=== PATIENT | female | born 1990 | race Hispanic/Latino ===

== ENCOUNTER 2022-08-05 18:55 | Inpatient (IN) | payer OTHER, SELFPAY ==
--- NOTE | 2022-08-05 22:02 | P.PNAN_ITS ---
Anes - Initial Pre Proc Eval Procedure: Operation Date: 08/05/22 22:30 Proposed Procedures p Section - Donato Cook MD Date/Time: 08/05/22 22:02 Surgeon: Eder Garnett MD Pre Op Diagnosis: Repeat C/S Pre Op Diagnosis: Vaginal Discharge/Cramping Patient Data Age: 32 Gender: F Height: 1.42cm Weight: 73kg Allergies Allergy/AdvReac Type Severity Reaction Status Date / Time No Known Allergies Allergy Verified 08/05/22 22:03 Patient hx anesthesia problems: none Family hx anesthesia problems: none Prior surgeries: Results Review: All pre-operative results and documents have been reviewed as part of the pre- operative evaluation. [facility] Social History Social History Smoking status: Never smoker Lack of Transportation: No Lack of Food: Never True Current Housing: I Have Housing Concerned About Future Housing: No Difficulty Paying Gas/Electric Bills: No Difficulty Paying for Meds: No Currently Unemployed: No Education: Grade School Difficulty w/ Childcare or Family Care: No Anes - Eval Final PreProcedure Day of Procedure 08/05/22 22:02 Heart: regular rate and rhythm Lungs: clear to auscultation Airway: Mallampati scale class II Neurological: alert and oriented Last oral intake: 6 hours ASA classification: II Emergent: no Anesthetic plan: proceed Anesthesia type and monitoring: regional spinal and standard monitoring Results Review: All pre-operative results and documents have been reviewed as part of the pre- operative evaluation. Informed Consent: The patient's anesthetic plan and its attendant risks and benefits were discussed with the patient/family/POA. Questions were solicited and answers provided to the satisfaction of the patient/family/POA.
--- NOTE | 2022-08-05 22:08 | LDADM ---
This patient, Adrienne Rondon, was admitted to Labor/Delivery/Recovery 120 on 08/05/22 at 21:25. Plans for labor, pain management and were discussed with patient. Patient/family oriented to hospital policies and general routines including ID bracelet, bed and alarms, visiting hours, pain management, procedures, bathroom and other care routines, personal items, smoking policy, room service/diet and guest tray routines, infant security routines, and visiting hours. Patient/Family are encouraged to report perceived risks to care and to ask questions if they do not understand what they are told or what they should do. See OBIX for further documentation.
[2022-08-05 22:13] LABS: Basophils Percent Auto 0.3 % (0.2-1.2); Eosinophils Absolute Auto 0.1 K/mm3 (0-0.3); Eosinophils Percent Auto 0.9 % (0-4.4); Hemoglobin 12.4 g/dL (12.0-15.0); Immature Granulocyte Absolute 0.03 K/mm3 (0.00-0.031); Immature Granulocyte Percent A 0.4 % (0-0.5); Lymphocytes Absolute Auto 2.44 K/mm3 (0.9-3.2); Lymphocytes Percent Auto 34.7 % (18.3-44.2); Mean Corpuscular HGB Conc 33.5 g/dl (32-36); Mean Corpuscular Hemoglobin 28.2 pg (26-34); Mean Corpuscular Volume 84.3 fl (80-100); Mean Platelet Volume 10.4 fl (7.4-10.4); Monocytes Absolute Auto 0.3 K/mm3 (0.1-0.6); Monocytes Percent Auto 4.4 % (2.6-8.5); Neutrophils Absolute Auto 4.2 K/mm3 (1.3-6.7); Neutrophils Percent Auto 59.3 % (45.5-73.1); Platelet Count Result 252 k/mm3 (150-375); Red Blood Count 4.39 M/mm3 (4.2-5.4); Red Cell Distribution Width 13.6 % (11.5-14.5)
[2022-08-05] MEDS: LACTATED RINGERS 1,000 ML 999 ML IV CONT (22:20)
--- NOTE | 2022-08-05 23:04 | P.PNAN_ITS ---
Anes - Eval Final PreProcedure Day of Procedure 08/05/22 23:04 Patient weight: overweight Heart: regular rate and rhythm Lungs: clear to auscultation Airway: Mallampati scale class II Neurological: alert and oriented Last oral intake: 6 hours ASA classification: II Emergent: no Anesthetic plan: proceed Anesthesia type and monitoring: regional spinal and standard monitoring Results Review: All pre-operative results and documents have been reviewed as part of the pre- operative evaluation. Informed Consent: The patient's anesthetic plan and its attendant risks and benefits were discussed with the patient/family/POA. Questions were solicited and answers provided to the satisfaction of the patient/family/POA.
[2022-08-05] MEDS: LACTATED RINGERS 1,000 ML 125 ML IV CONT (23:29)
--- NOTE | 2022-08-05 23:36 | PM.IMHP ---
H&P: HPI History of Present Illness Date/Time: 08/05/22 23:36 Chief Complaint: Labor Narrative: 32 y/o at 38 weeks here with contractions. Prior . GBS unknown. Cervix has changed from 1 to 4 cm. Interview conducted with translation service from Syriac to Ghanaian. She has a left ovarian cyst she'd like to have evaluated and possibly excised. Review of Systems Review of Systems: All systems reviewed & are unremarkable except as noted in HPI and below PMFSH Surgical History Surgical History (Updated 08/05/22 @ 23:39 by Donato Cook MD) History of 2 sections Social History Social History Smoking status: Never smoker Lack of Transportation: No Lack of Food: Never True Current Housing: I Have Housing Concerned About Future Housing: No Difficulty Paying Gas/Electric Bills: No Difficulty Paying for Meds: No Currently Unemployed: No Education: Grade School Difficulty w/ Childcare or Family Care: No Meds Home Medications and Allergies Allergies Allergy/AdvReac Type Severity Reaction Status Date / Time No Known Allergies Allergy Verified 08/05/22 22:03 Exam Const: Orientation/consciousness: patient oriented x3 Other: Well-developed, well-nourished female in no acute distress. Neck: Thyroid: thyroid normal Lymphatic: no lymphadenopathy noted (in neck, axilla or inguinal nodes) Resp: Effort & Inspection: normal respiratory effort Auscultation: clear to auscultation bilaterally Cardio: Rate: regular rate Rhythm: regular rhythm Heart sounds: S1 normal heart sound present and S2 normal heart sound present GI: Other: ABD: Soft, nontender, nondistended. No guarding or rebound tenderness. No hepatosplenomegaly. : General: Yes no CVA tenderness Other: External genitalia: normal female hair distribution, without lesion. Urethral meatus: no lesion, non prolapsed. Bladder: no mass, nontender Vagina: well-estrogenized, without lesion or discharge. No cystocele or rectocele. Cervix: no lesion or discharge. Uterus: small, anteverted, freely mobile, nontender Adnexa: no mass or tenderness. Anus/perineum: no lesions, nontender Back/Spine/Pelvis: Back: no CVA tenderness Skin: General skin exam: normal color and no rashes or lesions noted Neuro: General: patient oriented x3 Extrem: Other: Extremities: nontender with no edema Psych: Mental Status: mental status grossly normal Affect: normal affect H&P: Results Labs Labs: Short CBC 08/05/22 Range/Units 22:05 WBC 7.0 (4.5-10.0) K/mm3 Hgb 12.4 (12.0-15.0) g/dL Hct 37.0 (37.0-47.0) % Plt Count 252 (150-375) k/mm3 Assessment and Plan Assessment and plan (1) Term : Code(s): Z34.90 - Encounter for supervision of normal , unspecified, unspecified trimester Status: Acute Assessment and Plan: A: 32 y/o at 38 weeks here with labor, prior delivery, desiring repeat. Also with a left ovarian cyst, desiring evaluation and possible left ovarian cystectomy. P: She understands risks of surgery to include risks of anesthesia, risks of pain, infection, bleeding, blood products, thromboembolic phenomena and damage to adjacent structures such as bowel, bladder, ureters, blood vessels and nerves. She understands all these risks and elects to proceed with repeat , possible left ovarian cystectomy. (2) Active labor at term: Status: Acute (3) History of delivery: Code(s): Z98.891 - History of uterine scar from previous surgery Status: Acute
--- NOTE | 2022-08-05 23:42 | WPDHPUPDATE1 ---
History and Physical Update Update Date/Time: 08/05/22 23:42 History and Physical has been reviewed, including an updated exam of the patient. There are NO changes in the patient's condition. Risks, benefits, and alternatives have been discussed and questions answered. Patient agrees to proceed with procedure.
[2022-08-06] VITALS (177 sets, daily range): BP systolic 53–110; BP diastolic 26–83; PULSE 49–140; RESP 16–20; TEMP 36.1–37.7; O2SAT 84–100
[2022-08-06] MEDS: KETOROLAC 30 MG/ML VIAL (*BKC) IV PUSH ×2 (00:51→12:09)
--- NOTE | 2022-08-06 01:09 | P.PCNOB_ITS ---
OB - Delivery Note Procedure Delivery date: 08/06/22 Procedure: Procedures Operation Date: 08/05/22 22:30 <No data on this case meets the specified criteria> Repeat low transverse delivery Excision of left adnexal cyst Delivery monitor: External FHT and External Uterine Route of delivery: Specimen: Yes (cord blood, left adnexal cyst) Quantitative Blood Loss (ml): 1,285 Anesthesia type: Spinal Disposition: PACU Complications: None Narrative: Findings: Normal-appearing uterus, right ovary and right tube. A large cystic mass [id number] in the left adnexa appeared to be arising from the left Fallopian tube. The left ovary was normal-appearing. Techniques: The patient was taken to the operating room where she was prepared and draped in the usual sterile fashion in dorsal supine position with a leftward tilt. She received cefazolin preoperatively. Spinal anesthesia was found to be adequate. A Pfannenstiel skin incision was made along the previous scar line and was carried through to the underlying layer of the fascia. The fascia was incised in the midline and the incision was extended laterally. The fascia was dissected free of the underlying rectus muscles. The rectus muscles were in the midline. The peritoneum was identified, tented up and entered sharply. The peritoneal incision was extended superiorly and inferiorly with good visualization of the bladder. The bladder blade was placed. The vesicouterine peritoneum was identified, tented up and entered sharply. The incision was extended laterally and the bladder flap was developed. The bladder blade was replaced. The uterus was then incised sharply in a transverse fashion along the lower uterine segment. The incision was extended laterally. The infant's head was delivered atraumatically to the sterile field, followed by the body. The nose and mouth were bulb suctioned. After a delay, the cord was clamped and cut. The infant was handed off the field. Cord blood was collected. The placenta was removed manually and was passed off the field. The uterus was exteriorized and cleared of all clots and debris. The uterine incision was reapproximated using 0 Monocryl in a running, locked fashion. Excellent hemostasis resulted as did excellent reapproximation of the normal anatomy. The left adnexal mass was dissected free of adhesions. The pedicle supporting the mass was transected, and the mass was able to be passed off the field. The pedicle was repaired using 0 vicryl. The pedicle was treated with Hemaderm. The uterus was returned the abdomen. The pelvis was irrigated copiously with warmed normal saline. Rigorous hemostasis was assured. The fascial layer was reapproximated using 0 Vicryl in a running fashion. The skin was closed with a running, subcuticular stitch of 4 0 Vicryl. Dermaflex was applied externally. Sponge, lap, needle and instrument counts were correct. The patient was taken to the recovery room in stable condition. The went to the nursery in stable condition. I was present and scrubbed the entire procedure. [place] Baby Date of : 08/06/22 Time of : 00:08 Weeks of gestation at delivery: 38 gender: Male Weight (pounds): 7 Weight (ounces): 4 presentation: vertex Placenta delivery description: Manual Removal and Normal Configuration Cord Vessel Description: 3 Vessels and Delayed Cord Clamping score one minute: 9 score five minutes: 9
[2022-08-06] MEDS: LACTATED RINGERS 1,000 ML 999 ML IV CONT (02:25)
[2022-08-06] MEDS: OXYTOCIN 30 UNITS/NS 500 ML 30 UNITS/500 ML BAG 125 UNITS IV CONT (02:25)
--- NOTE | 2022-08-06 02:28 | PC.NURSE ---
[id number] Dr. Cook [phone]- Dr. Cook returned page. Dr. Cook notified of repeated hypotensive BPs with tachycardia. Patient is symptomatic. MULE SPINNER at bedside with RN. Orders received.
[2022-08-06 02:49] LABS: Basophils Percent Auto 0.3 % (0.2-1.2); Eosinophils Percent Auto 0.2 % (0-4.4); Hematocrit 22.8 % (37.0-47.0); Hemoglobin 7.5 g/dL (12.0-15.0); Immature Granulocyte Absolute 0.08 K/mm3 (0.00-0.031); Immature Granulocyte Percent A 0.6 % (0-0.5); Lymphocytes Absolute Auto 2.31 K/mm3 (0.9-3.2); Lymphocytes Percent Auto 16.4 % (18.3-44.2); Mean Corpuscular HGB Conc 32.9 g/dl (32-36); Mean Corpuscular Hemoglobin 28.6 pg (26-34); Mean Platelet Volume 9.4 fl (7.4-10.4); Monocytes Absolute Auto 0.4 K/mm3 (0.1-0.6); Monocytes Percent Auto 2.5 % (2.6-8.5); Neutrophils Absolute Auto 11.3 K/mm3 (1.3-6.7); Platelet Count Result 298 k/mm3 (150-375); Red Blood Count 2.62 M/mm3 (4.2-5.4); Red Cell Distribution Width 13.5 % (11.5-14.5); White Blood Count 14.1 K/mm3 (4.5-10.0)
--- NOTE | 2022-08-06 02:55 | PC.NURSE ---
[phone] Dr. Cook [phone]-Dr. Cook returned page. Notified of CBC results and VS. Orders received.
--- NOTE | 2022-08-06 03:26 | PC.NURSE ---
statistical technician unable to receive blood products; new order requested from blood bank staff. Still unable to obtain blood products after new order entered, request made for emergent release of blood products.
[2022-08-06] MEDS: SODIUM CHLORIDE 0.9% IV 250 ML 30 ML IV CONT ×3 (03:50→05:58)
[2022-08-06 04:00] LABS: INR 1.2; Prothrombin Time 14.5 Seconds (11.1-14.7)
[2022-08-06 04:01] LABS: Fibrinogen 250 mg/dl (215-510); Partial Thromboplastin Time 30.1 SECONDS (22.3-36.8)
[2022-08-06 04:14] LABS: D Dimer 4.83 ug/mL (<0.48)
[2022-08-06] MEDS: DEXTROSE 5%/0.45% SOD CHL 1,000 ML 125 ML IV CONT (06:41)
--- NOTE | 2022-08-06 06:54 | PC.NURSE ---
Dr. Cook called for update. VS, Urine output, abdominal circumference reported. order received repeat H/H 2 hours after blood transfusion.
--- NOTE | 2022-08-06 08:45 | PC.NURSE ---
Patient transferred to post room #286 via stretcher. Support person present. Oriented to unit, room, information board, rooming in, admission packet and security measures. Patient verbalizes understanding.
[2022-08-06 10:10] LABS: Hematocrit 26.3 % (37.0-47.0); Hemoglobin 8.6 g/dL (12.0-15.0)
[2022-08-06] MEDS: DOCUSATE SODIUM 100 MG CAPSULE PO (12:09)
[2022-08-06] MEDS: SIMETHICONE 80 MG TAB.CHEW PO ×3 (12:09→21:07)
[2022-08-06] MEDS: POLYSACCHARIDE IRON COMPLEX 150 MG CAPSULE PO (14:32)
[2022-08-06] MEDS: KCL 20 MEQ/D5/0.45% SOD CHL 1,000 ML 125 ML IV CONT (14:33)
[2022-08-06] MEDS: diphenhydrAMINE HCl INJ 50 MG/ML VIAL 25 MG IV PUSH (14:42)
[2022-08-06] MEDS: MULTIVIT/MIN/PREN/FOL AC/IRON TABLET 1 TAB PO (15:39)
[2022-08-06] MEDS: FUROSEMIDE INJ 40 MG/4 ML VIAL 10 MG IV PUSH (15:44)
[2022-08-06] MEDS: IBUPROFEN 600 MG TABLET PO (21:06)
[2022-08-07] VITALS: BP 94/50; PULSE 110; RESP 16; TEMP 37
[2022-08-07 03:15] VITALS: BP 101/60; PULSE 102; RESP 16; TEMP 36.6
[2022-08-07] MEDS: HYDROcodone/acetaminophen (*CRX) 5-325 MG TABLET 1 TAB PO ×4 (03:27→20:07)
[2022-08-07] MEDS: IBUPROFEN 600 MG TABLET PO ×3 (03:27→20:08)
[2022-08-07 05:11] LABS: Basophils Percent Auto 0.3 % (0.2-1.2); Eosinophils Percent Auto 0.3 % (0-4.4); Hematocrit 21.1 % (37.0-47.0); Immature Granulocyte Absolute 0.03 K/mm3 (0.00-0.031); Immature Granulocyte Percent A 0.4 % (0-0.5); Lymphocytes Absolute Auto 1.66 K/mm3 (0.9-3.2); Lymphocytes Percent Auto 23.6 % (18.3-44.2); Mean Corpuscular HGB Conc 32.7 g/dl (32-36); Mean Corpuscular Hemoglobin 27.6 pg (26-34); Mean Corpuscular Volume 84.4 fl (80-100); Mean Platelet Volume 9.4 fl (7.4-10.4); Monocytes Absolute Auto 0.4 K/mm3 (0.1-0.6); Monocytes Percent Auto 6.3 % (2.6-8.5); Neutrophils Absolute Auto 4.9 K/mm3 (1.3-6.7); Neutrophils Percent Auto 69.1 % (45.5-73.1); Platelet Count Result 173 k/mm3 (150-375); Red Cell Distribution Width 14.6 % (11.5-14.5)
[2022-08-07 05:16] LABS: Hemoglobin 6.9 g/dL (12.0-15.0)
[2022-08-07 07:20] VITALS: BP 96/58; PULSE 96; RESP 16; TEMP 36.8; O2SAT 99
[2022-08-07] MEDS: MULTIVIT/MIN/PREN/FOL AC/IRON TABLET 1 TAB PO (08:32)
[2022-08-07] MEDS: TETANUS,DIPHTHERIA,AC PERTUSSIS ADULT (0.5 ML) BOOSTRIX IM (08:32)
[2022-08-07] MEDS: POLYSACCHARIDE IRON COMPLEX 150 MG CAPSULE PO ×2 (08:32→16:38)
[2022-08-07] MEDS: DOCUSATE SODIUM 100 MG CAPSULE PO ×2 (08:33→16:38)
--- NOTE | 2022-08-07 08:40 | PC.NURSE ---
Breast pump provided due to nipple shield use. Instructions given on cleaning, care, usage, that there should be no pain, pumping schedule for milk production, collection, and storage of human milk. Patient was assessed for correct placement, flange size, to pump for comfort and nipple stretching/stimulation for adequate milk production every 3 hours (8 times in 24 hours). Mother voiced understanding.
[2022-08-07 11:53] LABS: Rapid Plasma Reagin Non-Reactive (NonReactive)
--- NOTE | 2022-08-07 12:34 | P.PNOB_ITS ---
OB - PN: Subj Subjective Date/time seen: 08/07/22 12:34 Patient comments: no complaints and pain well controlled baby status: doing well and nursing well OB - PN: Obj Data Labs 08/07/22 04:03 Labs: Laboratory Results - last 24 hr 08/05/22 08/05/22 08/07/22 22:05 22:05 04:03 WBC 7.0 RBC 2.50 L Hgb 6.9 L* Hct 21.1 L MCV 84.4 MCH 27.6 MCHC 32.7 RDW 14.6 H Plt Count 173 MPV 9.4 Immature Gran % (Auto) 0.4 Neut % (Auto) 69.1 Lymph % (Auto) 23.6 [place] % (Auto) 6.3 Eos % (Auto) 0.3 Baso % (Auto) 0.3 Lymph # (Auto) 1.66 [place] # (Auto) 0.4 Eos # (Auto) 0.0 Baso # (Auto) 0.0 Abs Immat Gran (auto) 0.03 Absolute Neuts (auto) 4.9 Absolute Nucleated RBC 0.0 Nucleated RBC % 0.0 RPR Non-reactive Crossmatch See Detail OB - PN A/P Plan day: 1 Plan: routine care Comments: start iron Time Spent With Patient Time: Total time spent is greater than 50% in coordination of care (as documented) at patient's floor/unit and/or counseling patient: Time with patient: less than 15 minutes Exam Const: General: cooperative, healthy appearing, comfortable and overweight Orientation/consciousness: oriented to person, oriented to place and oriented to time Resp: Effort & Inspection: normal respiratory effort Cardio: Rate: regular rate Rhythm: regular rhythm Heart sounds: S1 normal heart sound present and S2 normal heart sound present GI: Inspection: normal to inspection and incision (cdi)
--- NOTE | 2022-08-07 14:07 | PC.NURSE ---
Aman - Collaborated with primary RN Mayra on a feeding plan of pumping and feeding her . Slovak resources were given to patient concerning pumping, storage, collection, flange fit, milk production using a Slovak education booklet with QR codes.
[2022-08-07 14:28] VITALS: BP 113/71
[2022-08-07] MEDS: SIMETHICONE 80 MG TAB.CHEW PO ×2 (16:38→20:07)
[2022-08-07 20:00] VITALS: BP 104/68; PULSE 105; RESP 18; TEMP 37; O2SAT 100
[2022-08-08] MEDS: SIMETHICONE 80 MG TAB.CHEW PO (05:01)
[2022-08-08] MEDS: IBUPROFEN 600 MG TABLET PO ×2 (05:01→13:12)
[2022-08-08] MEDS: HYDROcodone/acetaminophen (*CRX) 5-325 MG TABLET 1 TAB PO ×3 (05:02→13:12)
--- NOTE | 2022-08-08 07:47 | PM.DS ---
DS: Admitting Diagnosis Discharge Date 08/08/2022 Admitting Diagnosis Term in active labor with previous section DS: Discharge Diagnosis Discharge Diagnosis (1) History of delivery: Code(s): Z98.891 - History of uterine scar from previous surgery Status: Acute (2) Active labor at term: Status: Acute (3) Term : Code(s): Z34.90 - Encounter for supervision of normal , unspecified, unspecified trimester Status: Acute (4) Left ovarian cyst: Code(s): N83.202 - Unspecified ovarian cyst, left side Status: Acute DS: Summary Hospital Course Reason for hospitalization: Patient was admitted at term in active labor with 2 previous sections. She was known to have a large left adnexal cyst which was noted on admission Hospital Course: Patient underwent repeat section and resection of left adnexal cyst. It appeared to be a tube but pathology is pending. She did require transfusion postop day 1 of 2units and her hemoglobin remained in the mid 6 is. She remained afebrile. She was up, voiding without difficulty, ambulating, generally without complaints. Time Spent with Patient Time attestation: Total time spent providing and/or coordinating discharge services: Exam Const: General: cooperative, healthy appearing and comfortable Nutritional Appearance: average body habitus Orientation/consciousness: oriented to person, oriented to place and oriented to time HENMT: Head: normal to inspection Resp: Effort & Inspection: normal respiratory effort Cardio: Rate: regular rate Rhythm: regular rhythm Heart sounds: S1 normal heart sound present and S2 normal heart sound present GI: Inspection: normal to inspection and incision (Wound clean dry and intact) DS: Data Data Completed and Pending Pending studies at discharge: Pending at discharge 08/06/22 01:33 Surgical [PTH] Routine Labs on day of discharge: Labs from last 24 hours 08/05/22 08/05/22 22:05 22:05 RPR Non-reactive Crossmatch See Detail Discharge Plan Discharge Attending physician on discharge: Eder George Discharging Clinician: Eder George Patient Disposition: Home, Self-Care Activity: may shower, no straining and pelvic rest Diet: heart healthy Wound Care Instructions: follow printed instructions Patient Instructions: Antibiotic Form Stand Alone Forms: General Discharge Information Follow-up/Referrals: Eder George MD [Physician] - Discharge Medications: New hydrocodone-acetaminophen 5-325 mg tablet 1 tablet PO Q4H PRN (Reason: pain) Qty: 30 0RF Date of admission: 08/05/22 21:25 Primary Care Provider: PHYSICIAN,GERIATRIC NURSE Admitting Provider: Eder George Attending physician on admission: Eder George Condition: Stable
--- NOTE | 2022-08-08 07:53 | PM.OBPNVD ---
OB - PN: Subj Subjective Date/time seen: 08/08/22 07:53 Patient comments: no complaints and pain well controlled baby status: doing well and nursing well OB - PN: Obj Data Labs 08/07/22 04:03 Labs: Laboratory Results - last 24 hr 08/05/22 08/05/22 22:05 22:05 RPR Non-reactive Crossmatch See Detail OB - PN A/P Plan day: 2 Plan: routine care, discharge home and follow up 6 weeks (4) Time Spent With Patient Time: Total time spent is greater than 50% in coordination of care (as documented) at patient's floor/unit and/or counseling patient: Exam Const: General: cooperative, healthy appearing and comfortable Nutritional Appearance: average body habitus Orientation/consciousness: oriented to person, oriented to place and oriented to time HENMT: Head: normal to inspection Resp: Effort & Inspection: normal respiratory effort Cardio: Rate: regular rate Rhythm: regular rhythm Heart sounds: S1 normal heart sound present and S2 normal heart sound present GI: Inspection: normal to inspection and incision (cdi)
[2022-08-08 08:15] VITALS: BP 109/70; PULSE 87; RESP 16; TEMP 36.8; O2SAT 98
[2022-08-08] MEDS: POLYSACCHARIDE IRON COMPLEX 150 MG CAPSULE PO (08:20)
[2022-08-08] MEDS: DOCUSATE SODIUM 100 MG CAPSULE PO (08:20)
[2022-08-08] MEDS: MULTIVIT/MIN/PREN/FOL AC/IRON TABLET 1 TAB PO (08:20)
--- NOTE | 2022-08-08 12:53 | PC.NURSE ---
Patient to view the discharge video Mother & Baby Care, The First Two Weeks online in Malian. Patient was given the opportunity and encouraged to ask questions. Patient verbalized understanding of information shared and has been given the mother/baby guide for home reference.
== END 2022-08-08 14:40 | disposition home or self-care (01) | DRG 540 ==
LOC: ANHLDR 22:55 → ANHOB2 08-06 08:58
PROVIDERS: Admitting Provider Obstetrics & Gynecology; Visit Provider Obstetrics & Gynecology
PROC: (CPT 59514; principal; 2022-08-05 22:30)
DX: O34.211 Maternal care for low transverse scar from previous cesarean delivery (principal); N83.202 Unspecified ovarian cyst, left side; Z37.0 Single live birth; Z3A.38 38 weeks gestation of pregnancy; O36.8330 Maternal care for abnormalities of the fetal heart rate or rhythm, third trimester, not applicable or unspecified; O34.83 Maternal care for other abnormalities of pelvic organs, third trimester
CPT/HCPCS: 36415; 36430; 85014; 85018; 85025; 85380; 85384; 85610; 85730; 86592; 86850; 86900; 86901; 86920; 86923; 88305; 90715; A9270; J1200; J1885; J1940; J2250; J2274; J2590; J3480; J7050; J7120; P9016

== ENCOUNTER 2022-08-12 04:21 | Emergency (ER) | payer OTHER, SELFPAY ==
[2022-08-12] VITALS (7 sets, daily range): BP systolic 100–139; BP diastolic 65–85; PULSE 110–141; RESP 18–27; TEMP 37.4–39.6; O2SAT 96–100
--- NOTE | ~2022-08-12 | XR_ITS ---
EXAMINATION: XR chest 2V DATE: 08/12/2022 05:23 INDICATION: Cough and fever post recent section TECHNIQUE: PA and lateral views of the chest were obtained. COMPARISON: None FINDINGS: Calcified nodules in the left lower lung zone consistent with old granulomatous disease. No other foc al airspace opacities, pulmonary edema, pleural effusion or pneumothorax. The cardiomediastinal silho uette is normal. Visualized bones and soft tissues are unremarkable. IMPRESSION: 1. No acute cardiopulmonary disease. Reviewed, dictated and finalized at location A. [facility]
--- NOTE | ~2022-08-12 | CT_ITS ---
EXAMINATION: CTA chest PE protocol DATE: 08/12/2022 09:40 INDICATION: Chest pain TECHNIQUE: Computed tomography (CT) pulmonary angiogram of the chest was performed with 100 mL Omnipa que-350 intravenous contrast. Additional 3D reconstructions utilizing coronal maximum intensity proje ction (MIP) were performed. Automated exposure control and iterative reconstruction technique were em ployed. The dose-length product was 268.71 mGy-cm. COMPARISON: None FINDINGS: Good contrast opacification of the pulmonary arteries. There is mild streak artifact from dense contr ast in the superior vena cava and right atrium. There is also scattered respiratory motion artifact, moderate at the bilateral lung bases where it decreases sensitivity in some of the smaller subsegment al pulmonary arteries and otherwise mild. No definitive pulmonary embolism identified. Calcified left lower lobe nodule consistent with old granulomatous disease. Band of discoid atelectasis in the righ t lower lobe. No pneumonia, pulmonary edema, pleural effusion or pneumothorax. Heart size is normal. No pericardial effusion. Thoracic aorta is normal in caliber with no dissection. No pathologically en larged thoracic lymphadenopathy. Bones are unremarkable. IMPRESSION: 1. No evident pulmonary embolism. Sensitivity decreased in many of the smaller subsegmental pulmonary arteries at the bilateral lung bases due to primarily to some respiratory motion. 2. Band of discoid atelectasis in the right lower lobe. No other acute cardiopulmonary disease. Reviewed, dictated and finalized at location [facility]. [facility] [employer] IMPRESSION: 1. No evident pulmonary embolism. Sensitivity decreased in many of the smaller subsegmental pulmonary arteries at the bilateral lung bases due to primarily to some respiratory motion. 2. Band of discoid atelectasis in the right lower lobe. No other acute cardiopu lmonary disease.
--- NOTE | 2022-08-12 04:44 | ECG_ITS ---
Measurements Intervals [place] Rate: 137 P: 31 CA: 122 QRS: 61 QRSD: 77 T: 27 QT: 255 QTc: 385 Interpretive Statements SINUS TACHYCARDIA ABNORMAL RHYTHM ECG NO PREVIOUS ECG AVAILABLE FOR COMPARISON Electronically Signed On 08-12-2022 8:36:04 [employer] by Romain Eugene M.D.
--- NOTE | 2022-08-12 05:07 | ED.CHESTPAIN ---
HPI - Chest Pain General Chief Complaint: Chest Pain <Cameron Pinon MD - Last Filed: 08/12/22 07:07> Stated Complaint: Cough, chest pain, recent <Cameron Pinon MD - Last Filed: 08/12/22 07:07> Time Seen by Provider: 08/12/22 04:28 <Cameron Pinon MD - Last Filed: 08/12/22 07:07> History of Present Illness HPI narrative: Patient is a 32-year-old female who presents ER with fever. Patient recently had a was discharged from hospital on 08/09/2023. She woke yesterday/nonfunctional. With headache and body aches and fever. No known sick contacts. Has cough that is productive of sputum. She has some pain with coughing in her chest. No exertional chest discomfort and dyspnea. She reports that we will form pain for last couple of days. No urinary frequency urgency or dysuria. No drainage from her surgical site. She does have some pain in the area from frequent coughing. Patient denies any discoloration or redness or tenderness to her breast or areola. <Cameron Pinon MD - Last Filed: 08/12/22 07:07> Related Data Allergies/Adverse Reactions: Allergies Allergy/AdvReac Type Severity Reaction Status Date / Time No Known Allergies Allergy Verified 08/12/22 04:23 <Cameron Pinon MD - Last Filed: 08/12/22 07:07> Review of Systems Review of Systems: All systems reviewed & are unremarkable except as noted in HPI and below <Cameron Pinon MD - Last Filed: 08/12/22 07:07> Constitutional: Constitutional: Reports chills, Reports fatigue and Reports fever(s) <Cameron Pinon MD - Last Filed: 08/12/22 07:07> ENT: Denies nasal congestion and Denies sore throat <Cameron Pinon MD - Last Filed: 08/12/22 07:07> Cardiovascular: Cardiovascular: Reports chest pain, Denies rapid heart rate and Denies radiating jaw, neck or arm pain <Cameron Pinon MD - Last Filed: 08/12/22 07:07> Respiratory: Respiratory: Reports cough, Denies dyspnea and Denies wheezing <Cameron Pinon MD - Last Filed: 08/12/22 07:07> Gastrointestinal: Gastrointestinal: Denies nausea and Denies vomiting <Cameron Pinon MD - Last Filed: 08/12/22 07:07> Genitourinary: Genitourinary: Denies nocturia, Denies dysuria, Denies flank pain and Reports vaginal discharge <Cameron Pinon MD - Last Filed: 08/12/22 07:07> Integumentary/Breasts: Skin/Breast: Denies breast pain, Denies erythema and Denies rash <Cameron Pinon MD - Last Filed: 08/12/22 07:07> Neurologic: Reports headache(s) <Cameron Pinon MD - Last Filed: 08/12/22 07:07> PMFSH Past Medical History Medical History: Medical History (Updated 08/12/22 @ 10:28 by Vaishali Mcmanus MD) Healthy female adult <Cameron Pinon MD - Last Filed: 08/12/22 07:07> Surgical History Surgical History: Surgical History (Updated 08/05/22 @ 23:39 by Donato Cook MD) History of 2 sections <Cameron Pinon MD - Last Filed: 08/12/22 07:07> Social History Social History: Social History Smoking status: Never smoker Lack of Transportation: No Lack of Food: Never True Current Housing: I Have Housing Concerned About Future Housing: No Difficulty Paying Gas/Electric Bills: No Difficulty Paying for Meds: No Currently Unemployed: No Education: Grade School Difficulty w/ Childcare or Family Care: No <Cameron Pinon MD - Last Filed: 08/12/22 07:07> Exam Narrative: GENERAL: Well-appearing, well-nourished, and in no acute distress. HEAD: Normocephalic, atraumatic. EYES: PERRL and EOMI. CHEST: Clear to auscultation. No respiratory distress. HEART: Tachycardic regular. Normal peripheral pulses. ABDOMEN: Soft, nontender, nondistended. EXTREMITIES: Normal range of motion. No edema. SKIN: Warm, dry, no rash. NEURO: Alert and oriented x3. PSYCH: Normal mood and affect. <Cameron Pinon MD - Last Filed: 12
[2022-08-12 05:14] LABS: Basophils Percent Auto 0.3 % (0.2-1.2); Eosinophils Absolute Auto 0.1 K/mm3 (0-0.3); Eosinophils Percent Auto 1.3 % (0-4.4); Hematocrit 27.3 % (37.0-47.0); Hemoglobin 8.9 g/dL (12.0-15.0); Immature Granulocyte Absolute 0.12 K/mm3 (0.00-0.031); Lymphocytes Absolute Auto 0.79 K/mm3 (0.9-3.2); Lymphocytes Percent Auto 13.2 % (18.3-44.2); Mean Corpuscular HGB Conc 32.6 g/dl (32-36); Mean Corpuscular Hemoglobin 28.3 pg (26-34); Mean Corpuscular Volume 86.7 fl (80-100); Mean Platelet Volume 8.4 fl (7.4-10.4); Monocytes Absolute Auto 0.2 K/mm3 (0.1-0.6); Neutrophils Absolute Auto 4.7 K/mm3 (1.3-6.7); Neutrophils Percent Auto 79.2 % (45.5-73.1); Nucleated Red Blood Cells Perc 0.5 % (0.0-0.2); Platelet Count Result 397 k/mm3 (150-375); Red Blood Count 3.15 M/mm3 (4.2-5.4); Red Cell Distribution Width 14.7 % (11.5-14.5)
[2022-08-12 05:22] LABS: Lactic Acid Reflex 0.7 mmol/L (0.7-2.0)
[2022-08-12 05:23] LABS: Alanine Aminotransferase 32 U/L (6-35); Albumin Level 3.7 g/dL (3.5-5.1); Alkaline Phosphatase 120 U/L (38-126); Anion Gap 7 mmol/L (8-16); Aspartate Amino Transferase 64 U/L (14-36); Bilirubin,Total 0.8 mg/dL (0.2-1.3); Blood Urea Nitrogen 6 mg/dL (7-17); Calcium 7.9 mg/dL (8.4-10.2); Carbon Dioxide 27 mmol/L (22-30); Chloride 104 mmol/L (98-107); Estimated CRCL calculation 146 ml/min; Estimated Glomerular Filt Rate > 60; Glucose 94 mg/dL (65-110); Potassium 4.2 mmol/L (3.4-5.0); Sodium 138 mmol/L (137-145)
[2022-08-12 05:50] LABS: Influenza A QL RT-PCR Positive (Negative); Influenza B QL RT-PCR Negative (Negative); SARS-CoV-2 RNA PCR Negative
[2022-08-12] MEDS: SODIUM CHLORIDE 0.9% IV 1,000 ML 999 ML IV CONT ×2 (05:50→06:50)
[2022-08-12] MEDS: ACETAMINOPHEN 500 MG TABLET 1000 MG PO (05:50)
[2022-08-12] MEDS: OSELTAMIVIR PHOSPHATE 75 MG CAPSULE PO (06:15)
--- NOTE | 2022-08-12 06:45 | PC.NURSE ---
in and out catheter performed with clear yellow urine obtained.
[2022-08-12 06:57] LABS: Appearance Urine Clear (Clear); Bilirubin Urine Negative (Negative); Blood Urine 2+ (Negative); Color Urine Yellow (Yellow); Glucose Urine UA Negative (Negative); Ketones Urine Negative (Negative); Leukocyte Esterase Ur 1+ LEU/UL (Negative); Nitrate Urine Negative (Negative); Protein Urine Negative (Negative)
[2022-08-12 06:59] LABS: Bacteria Urine Trace /hpf; Mucus Urine Rare /lpf; Squamous Epithelial Cell Urine Rare /hpf (Few)
[2022-08-12 07:04] LABS: Add Urine Microscopic? YES
[2022-08-12] MEDS: IBUPROFEN 600 MG TABLET PO (08:31)
[2022-08-12 09:49] LABS: Hematocrit 24.9 % (37.0-47.0)
== END 2022-08-12 10:57 | disposition home or self-care (01) ==
PROVIDERS: General Practice; Emergency Provider Emergency Medicine
DX: J10.1 Influenza due to other identified influenza virus with other respiratory manifestations (principal); D64.9 Anemia, unspecified; E86.0 Dehydration; Z20.822 Contact with and (suspected) exposure to COVID-19
CPT/HCPCS: 36415; 71046; 71275; 80053; 81001; 83605; 85014; 85018; 85025; 87636; 93005; 96360; 99284; A9270; J7030; Q9967